=== PATIENT | female | born 1995 | race Caucasian/White ===

== ENCOUNTER 2017-04-14 12:17 | Inpatient (IN) | payer OTHER, MEDICAID ==
[~2017-04-14] VITALS: Ht 157.5 cm; Wt 49.0 kg
[~2017-04-14 12:17] MED LIST: PREN-15 PO
[2017-04-14] MEDS: BETAMET NA PHOS/AC(6 MG/ML) 5ML INJ IM SCH (13:37)
[2017-04-15] MEDS: BETAMET NA PHOS/AC(6 MG/ML) 5ML INJ IM SCH (12:22)
[2017-04-16] MEDS: LACTATED RINGER'S 1,000 ML IV SCH ×2 (06:57→19:30)
[2017-04-16] MEDS ORDERED: MAGNESIUM SULFATE 4 GM/100 ML 100 ML IVPB ONE (07:00)
[2017-04-16] MEDS: MAGNESIUM SULFATE 20 GM/500 ML 500 ML IV SCH ×2 (07:50→17:42)
[2017-04-16] MEDS: PRENATAL VITAMIN PO SCH (09:07)
--- NOTE | 2017-04-17 00:18 | HP ---
Date/Time of Note Date/Time of Note DATE: 04/17/17 TIME: 00:00 OB - History Hx of Present Free Text/Dictation 21 y.o G2P! was admitted for short cervix which was 2.2cm at 30w 2 d sent from [facility] clinic after OB u/s directlyt admitted for further management. x2 betamethasone given and presently receiving magnesium sulfate for neuroprotecxtion will be discontinue after 2days which started actually late presently no uterine contractions on EFM decrease bbv due to Mgso4 Chief Complaint: short cervix Estimated Due Date: Jun 21, 2017 : 2 Para: 1 Spontaneous : 0 Therapeutic : 0 Care: Limited Care Ultrasounds: Normal mid trimester US Medical Complications: None Past Family/Social History * Past Medical, Surgical, Family and Obstetric Histories reviewed from chart. Blood Type: AB+ Rubella: immune RPR/VDRL: Negative GBS Status: Unknown HBsAG: Negative OB Admission Exam Physical Exam HEENT: WNL Heart: Rhythm Normal Lungs: Clear, Equal Abdomen: WNL Extremities: Normal Reflexes: Normal Cervical Dilatation: None Effacement: 0% Membranes: Intact Amniotic Fluid: Unevaluable Heart Rate: 140's Accelerations: Accelerations Present Decelerations: No Decelerations Varibility: Minimum Contractions on Admission: None Last 72 hours Lab Results Magnesium Level Test 04/16/17 11:45 04/16/17 17:48 Magnesium Level 4.5 H 5.0 H OB Assessment/Plan Other Assessment: IUP 30w3d S/p X2bmz magnesium sulfate for 48hrs started late NIL short cervix Other plan: continue bed rest d/c magnesium sulfate 04/18 jael consult JOSE MARCANO MD Apr 17, 2017 00:11
[2017-04-17] MEDS: MAGNESIUM SULFATE 20 GM/500 ML 500 ML IV SCH ×3 (03:11→21:59)
[2017-04-17] MEDS: LACTATED RINGER'S 1,000 ML IV SCH ×2 (07:23→20:56)
[2017-04-17] MEDS: PRENATAL VITAMIN PO SCH (09:24)
[2017-04-18] MEDS: PRENATAL VITAMIN PO SCH (08:52)
[2017-04-18] MEDS: LACTATED RINGER'S 1,000 ML IV SCH (09:35)
--- NOTE | 2017-04-18 22:10 | PN ---
Date/Time of Note Date/Time of Note DATE: 04/18/17 TIME: 22:06 OB Subjective Subjective Subjective no c/o cramping pain OB Objective Objective Objective EFM no uterine activities tracing reactive OB Assessment/Plan Other Assessment: IUP 30w6d short cervix Other plan: continue to be inpatient with BED REST WITH BRP no need to be on tocolytics JOSE MARCANO MD Apr 18, 2017 22:10
[2017-04-19] MEDS: PRENATAL VITAMIN PO SCH (08:30)
[2017-04-19] MEDS: POLYETHYLENE GLYCOL 17 GM PACKET PO SCH (09:00)
[2017-04-20] MEDS: PRENATAL VITAMIN PO SCH (08:55)
--- NOTE | 2017-04-20 14:06 | PN ---
Date/Time of Note Date/Time of Note DATE: 04/20/17 TIME: 14:03 OB Subjective Subjective Subjective no c/o of cramping pain movement good OB Objective Objective Objective EFM reactive no uterine activities OB Assessment/Plan Other Assessment: IUP 30w5d (according to late u/s 31w1d?) short cervix Other plan: bed rest one more week poss discharge JOSE MARCANO MD Apr 20, 2017 14:06
[2017-04-21] MEDS: POLYETHYLENE GLYCOL 17 GM PACKET PO SCH (09:17)
[2017-04-21] MEDS: PRENATAL VITAMIN PO SCH (09:17)
--- NOTE | 2017-04-21 17:57 | PN ---
Date/Time of Note Date/Time of Note DATE: 04/21/17 TIME: 17:50 OB Subjective Subjective Subjective no subjective sx as cramping pain OB Objective Objective Objective EFM few uterine contraction s x4 whole day few variable down to 120 100 from 140' not significant OB Assessment/Plan Other Assessment: IUP 31+ short cervix P continue current management JOSE MARCANO MD Apr 21, 2017 17:57
--- NOTE | 2017-04-22 08:23 | RADRPT ---
PROCEDURE: Limited OB ultrasound CLINICAL INDICATION: Cervical length. TECHNIQUE: Sonographic evaluation to assess the cervical length was performed. COMPARISON: None. FINDINGS: Single live intrauterine is identified. heart rate is 163 beats per minute. Placenta is posterior. Presentation is breech. Cervical length measures approximately 3.6 cm. IMPRESSION: 1. Cervical length measures approximately 3.6 cm, within normal limits. 2. Breech presentation. RPTAT: EE .Jose L Sun MD, MD Date Time Electronically viewed and signed by .Jose L Sun MD, on 04/22/2017 08:27 .C/
[2017-04-22] MEDS: POLYETHYLENE GLYCOL 17 GM PACKET PO SCH (09:00)
[2017-04-22] MEDS: PRENATAL VITAMIN PO SCH (09:15)
--- NOTE | 2017-04-22 10:49 | PN ---
Date/Time of Note Date/Time of Note DATE: 04/22/17 TIME: 10:44 OB Subjective Subjective Subjective no c/o OB Objective Objective Objective cvl 3.6cm today EFM few u.c asymtomatic brief mild variable here and there HEENT: WNL Heart: Rhythm Normal Lungs: Clear, Equal Abdomen: WNL Extremities: Normal Reflexes: Normal OB Assessment/Plan Other Assessment: IUP 31w3d with short cx repeated CVL 3.6 Other plan: discharge home if jael OK JOSE MARCANO MD Apr 22, 2017 10:48
--- NOTE | 2017-04-22 12:13 | PD.PPDC ---
ASSEMBLER FOR PULLER OVER HAND Discharge Instruction Diagnosis Final Diagnosis: IUP 31w3d short cervix resolved? Condition Patient Condition: Stable Diet Diet: Resume Regular Diet Activity/Restrictions Activity: Bedrest May be up to bathroom May Shower Restrictions: No Exercising No Lifting No Driving No Sexual Activity Nothing in the Vagina No [place] No Tampons, douche Follow-up Follow-up with Physician: 2 Provider Information: with perinatalogy in 2weeks JOSE MARCANO MD Apr 22, 2017 12:13
--- NOTE | 2017-04-22 12:22 | DS ---
Date/Time of Note Date/Time of Note DATE: 04/22/17 TIME: 12:17 Discharge Summary Admission/Discharge Info Admit Date/Time Apr 14, 2017 at 12:22 Discharge Date/Time april 22 1215 Discharge Diagnosis IUP 31w3d short cervix, resolved Patient Condition: Stable Consults perinatalogist Procedures x2 bmz magnesoum sulfate for 48hrs bed rest Hx of Present Illness here for short cervix since 04/14 cx 2.2 repeated cvl 3.6cm Hospital Course same as above no uterine activities Home Meds Reported Medications Vit/Fe Fumarate/Fa (Prenafirst Tablet) 1 Tab Tablet, 1 TAB PO 04/03/13 Follow-up Plan 2weeks with perinatalogy and my office Primary Care Provider Care Physician No Primary Time spent on discharge: < 30 minutes JOSE MARCANO MD Apr 22, 2017 12:21
== END 2017-04-22 15:15 | disposition home or self-care (01) | DRG 782 ==
LOC: OBT 12:17 → L-D 12:19 → EDSTATUS 12:21 → OBG 12:22
PROVIDERS: ADMIT Obstetrics & Gynecology; ATTEND Obstetrics & Gynecology
DX: O26.873 Cervical shortening, third trimester (principal); Z3A.30 30 weeks gestation of pregnancy
CPT/HCPCS: 76817; 83735; J0702; J3475; J7120

== ENCOUNTER 2017-06-12 04:30 | Inpatient (IN) | payer MEDICAID, OTHER ==
[~2017-06-12] VITALS: Ht 154.9 cm; Wt 54.7 kg
[2017-06-12 04:46] VITALS: BP 126/71; PULSE 58; RESP 18; Ht 154.9 cm; Wt 54.7 kg
[2017-06-12] MEDS ORDERED: LACTATED RINGER'S 1,000 ML IV SCH (04:47)
[2017-06-12] MEDS ORDERED: LIDOCAINE 1% (MPF) 30 ML INJ INJ PRN (05:00)
[2017-06-12] MEDS ORDERED: OXYTOCIN 30 UNITS/LR 500 ML IV PRN ×2 (05:00→15:00)
[2017-06-12] MEDS ORDERED: CARBOPROST 250 MCG INJ IM PRN ×2 (05:00→15:00)
[2017-06-12] MEDS ORDERED: LACTATED RINGER'S 1,000 ML IV PRN (05:00)
[2017-06-12] MEDS ORDERED: METHYLERGONOVINE 0.2 MG INJ IM PRN ×2 (05:00→15:00)
[2017-06-12] MEDS ORDERED: MISOPROSTOL 200 MCG TAB PR PRN ×2 (05:00→15:00)
[2017-06-12] MEDS ORDERED: IBUPROFEN 600 MG TAB PO PRN (05:00)
[2017-06-12] MEDS ORDERED: OXYTOCIN 30 UNITS/LR 500 ML IV SCH ×2 (05:00)
--- NOTE | 2017-06-12 05:17 | HP ---
Date/Time of Note Date/Time of Note DATE: 06/12/17 TIME: 05:09 OB - History Hx of Present Free Text/Dictation 21 y.o at 38w3d came to triage with c/o U.c since 06/11/17 0700 with intact membrane. VE 5-6/90%/-1 admitted for expectant management. Chief Complaint: u.c's Estimated Due Date: Jun 23, 2017 : 2 Para: 1 Spontaneous : 0 Therapeutic : 0 Care: Good Care Ultrasounds: Normal mid trimester US Obstetrical Complications: None Medical Complications: None Past Family/Social History * Past Medical, Surgical, Family and Obstetric Histories reviewed from chart. Blood Type: AB+ Rubella: immune RPR/VDRL: Negative GBS Status: Negative HBsAG: Negative OB Admission Exam Vital Signs Vital Signs Vital Signs Date Time Temp Pulse Resp B/P Pulse Ox O2 Delivery O2 Flow Rate FiO2 06/12/17 04:46 98.6 58 18 126/71 Room Air Physical Exam HEENT: WNL Heart: Rhythm Normal Lungs: Clear, Equal Abdomen: WNL Extremities: Normal Reflexes: Normal Cervical Dilatation: 5cm Effacement: Other (90%) Station: -1 Membranes: Intact Amniotic Fluid: Unevaluable Heart Rate: 140's Accelerations: Accelerations Present Decelerations: No Decelerations Varibility: Moderate Contractions on Admission: < 5 Minutes Apart Intensity: Moderate OB Assessment/Plan Reason for admission: active labor Other Assessment: IUP 38w3d Plan: Expectant Management JOSE MARCANO MD Jun 12, 2017 05:17
[2017-06-12 06:07] LABS: BASOPHILS % 0.4 % (0.0-2.0); EOSINOPHILS # 0.2 10^3/ul (0.0-0.5); EOSINOPHILS % 1.6 % (0.0-7.0); HEMOGLOBIN 14.8 g/dl (12.0-16.0); LYMPHOCYTES % 21.3 % (18.0-55.0); MEAN CORPUSCULAR HGB CONC 33.6 g/dl (32.0-37.0); MEAN CORPUSCULAR VOLUME 95.2 fl (72.0-104.0); MEAN PLATELET VOLUME 12.8 fl (7.4-10.4); MONOCYTE # 0.8 10^3/ul (0.3-0.9); MONOCYTES % 8.9 % (0.0-13.0); NEUTROPHILS % 67.5 % (30.0-74.0); PLATELET COUNT 176 10^3/UL (140-415); RED BLOOD COUNT 4.62 10^6/ul (4.20-5.40); RED CELL DISTRIBUTION WIDTH 14.1 % (11.5-14.5); WHITE BLOOD COUNT 9.2 10^3/ul (4.8-10.8)
[2017-06-12 06:11] LABS: INR 0.89; PT RATIO 0.9
[2017-06-12 06:12] LABS: PARTIAL THROMBOPLASTIN TIME 28.1 Sec (25.0-35.0)
--- NOTE | 2017-06-12 06:14 | TRIAGE ---
OB Triage Datetime Report Generated by CPN: 06/12/2017 06:14 Datetime: 06/12/2017 05:33 Pain Assessment Pain Scale: 10 Pain Presence: Intermittent Pain Type: Contraction Pain Location: Abdomen; Back Pain Goal: 2 Pain Relief Measures: Comfort Measures Vaginal Exam Dilatation (cms): 7.0 Effacement (%): 90 Station: 0 Datetime: 06/12/2017 05:01 Assessment Type: Admission Assessment Time of Arrival: 06/12/2017 04:25 EGA: 38.3 Arrived By: Wheelchair Vaginal Bleeding: Scant Maternal Assessment Level of Consciousness: Fully Conscious DTR's/Clonus: DTRs 2+; No Clonus Headache: Denies Blurred Vision: No Respiratory Effort: Unlabored; Regular Rhythm; Equal Expansion Breath Sounds, Left: Clear and Equal Breath Sounds, Right: Clear and Equal Nausea/Vomiting: Denies RUQ Epigastric Pain: Denies Lower Extremities Edema: None Degree: None Upper Extremities Edema: None Degree: None Facial Edema: None Fall Risk Assessment History of Falling: (0) No Secondary Diagnosis: (0) No Ambulatory Aid: (0) Bedrest/Nurse Assist IV Therapy: (0) No Gait: (0) Normal/Bedrest/Immobile Mental Status: (0) Oriented to Own Ability Fall Score: 0 Fall Risk Score Definition: No Risk: No action required Pain Assessment Pain Scale: 10 Pain Presence: Intermittent Pain Type: Contraction Pain Location: Abdomen Pain Goal: 2 Membrane Status: Intact Datetime: 06/12/2017 05:00 Time of Arrival: 06/12/2017 05:00 EGA: 38.3 Arrived By: Stretcher Arrived From: Home Chief Complaint: CXS SINCE 06/11/17 AT 0700 Movement: Present Contractions: Irregular Time Contractions Began: 06/11/2017 07:00 Contractions: Q 10-15 Rupture of Membranes: Denies Vaginal Discharge: Denies Recent Sexual Intercouse: Denies Patient Complaints: None Time Provider Notified: 06/12/2017 04:45 Provider Notified: KRYS Initial Plan: EFM, VE, ASSESSMENT, CALL MD FOR ORDERS Datetime: 06/12/2017 04:50 Stage of : OB Triage Temperature Route: Oral Labor Evaluation Frequency: 4-5 Monitor Mode: External Duration (sec)2399: 60-80 Quality: Moderate Pattern: Normal: <= 5 Contractions in 10 Minutes Resting Tone [place]: Relaxed Heart Rate FHR Baseline Rate: 140 Monitor Mode: External US Variability: Moderate 6-25 bpm Accelerations: 15X15 Decelerations: None Category: Category I Pain Assessment Pain Scale: 9 Pain Presence: Intermittent Pain Type: Cramping; Sharp; Contraction Pain Location: Abdomen; Back Pain Goal: 5 Pain Relief Measures: Comfort Measures Datetime: 06/12/2017 04:44 Assessment Type: Triage Maternal Assessment Level of Consciousness: Fully Conscious DTR's/Clonus: DTRs 2+; No Clonus Headache: Denies Blurred Vision: No Respiratory Effort: Unlabored; Regular Rhythm; Equal Expansion Breath Sounds, Left: Clear and Equal Breath Sounds, Right: Clear and Equal Nausea/Vomiting: Denies RUQ Epigastric Pain: Denies Lower Extremities Edema: None Upper Extremities Edema: None Facial Edema: None Fall Risk Assessment History of Falling: (0) No Secondary Diagnosis: (0) No Ambulatory Aid: (0) Bedrest/Nurse Assist IV Therapy: (0) No Gait: (0) Normal/Bedrest/Immobile Mental Status: (0) Oriented to Own Ability Fall Score: 0 Fall Risk Score Definition: No Risk: No action required Datetime: 06/12/2017 04:38 Vaginal Exam Dilatation (cms): 5.5 Effacement (%): 90 Station: -1 Exam By: JOSSE Vaginal Bleeding: Scant Cervix, Consistency: Soft Cervix, Position: Posterior Presentation 'A': Cephalic
[2017-06-12] MEDS: BUTORPHANOL 2 MG INJ IV PRN ×2 (08:01→08:47)
[2017-06-12] MEDS ORDERED: CEFAZOLIN 2 GM/50 ML (PMX) 50 ML IVPB ONE ×2 (08:14→08:30)
[2017-06-12] MEDS ORDERED: MIDAZOLAM 1 MG/ML 2 ML INJ ONE (08:32)
[2017-06-12 09:45] VITALS: BP 116/61; PULSE 60; RESP 18
[2017-06-12 11:15] VITALS: BP 134/87; PULSE 51; RESP 18
--- NOTE | 2017-06-12 14:35 | LDN ---
Date/Time of Note Date/Time of Note DATE: 06/12/17 TIME: 14:29 Delivery Summary noral vaginal deliver Weeks of Gestation 38w3d Episiotomy: No Laceration repair: retained placeta Anesthesia type: None Estimated blood loss: 300 Sponge & Needle done & correct: Yes All needle counts correct: Yes Any foreign bodies felt in the: No Problems: Delivery Information Sex Infant Sex: female Apgars 1 Minute: 9 5 Minute: 9 Suctioning Nose & mouth suctioned at jael: Yes Delee suction performed: No Umbilical Cord Umbilical cord with: 3 Vessels Cord presentations: no nuchal cord Cord Blood was obtained: Yes Mother & Baby Disposition Disposition Mom & Baby to Maternity; Good: Yes Mom transferred to: Other (OR for retained placenta) Baby to NICU: No JOSE MARCANO MD Jun 12, 2017 14:34
[2017-06-12] MEDS ORDERED: LANOLIN 7 GM TUBE TOP PRN (15:00)
[2017-06-12] MEDS ORDERED: ZOLPIDEM 5 MG TAB PO PRN (15:00)
[2017-06-12] MEDS ORDERED: OXYCODONE/ASPIRIN (4.88/325) TAB PO PRN ×2 (15:00)
[2017-06-12 16:00] VITALS: BP 101/57; PULSE 70; RESP 18
[2017-06-12] MEDS: LACTATED RINGER'S 1,000 ML IV SCH ×2 (16:11→23:39)
[2017-06-12] MEDS: BENZOCAINE 20% 56 ML SPRAY TOP PRN (16:49)
[2017-06-12] MEDS: WITCH HAZEL/GLYCERIN PAD PR PRN (16:49)
[2017-06-12] MEDS: IBUPROFEN 600 MG TAB PO SCH ×2 (17:36→23:40)
[2017-06-12 20:00] VITALS: BP 114/59; PULSE 84; RESP 19
[2017-06-12] MEDS: SENNA/DOCUSATE NA (8.6MG/50MG) TAB PO SCH (21:00)
[2017-06-13 00:30] VITALS: BP 100/54; PULSE 72; RESP 19
[2017-06-13 04:32] VITALS: BP 94/56; PULSE 77; RESP 19
[2017-06-13] MEDS: IBUPROFEN 600 MG TAB PO SCH ×3 (05:42→17:45)
[2017-06-13 07:36] LABS: BASOPHILS % 0.3 % (0.0-2.0); EOSINOPHILS # 0.1 10^3/ul (0.0-0.5); EOSINOPHILS % 1.1 % (0.0-7.0); HEMATOCRIT 30.9 % (37.0-47.0); HEMOGLOBIN 10.1 g/dl (12.0-16.0); LYMPHOCYTES # 2.4 10^3/ul (0.8-2.9); LYMPHOCYTES % 20.8 % (18.0-55.0); MEAN CORPUSCULAR HEMOGLOBIN 31.8 pg (29.0-33.0); MEAN CORPUSCULAR HGB CONC 32.7 g/dl (32.0-37.0); MEAN CORPUSCULAR VOLUME 97.2 fl (72.0-104.0); MEAN PLATELET VOLUME 11.5 fl (7.4-10.4); MONOCYTE # 0.7 10^3/ul (0.3-0.9); MONOCYTES % 6.1 % (0.0-13.0); NEUTROPHILS % 71.3 % (30.0-74.0); PLATELET COUNT 148 10^3/UL (140-415); RED BLOOD COUNT 3.18 10^6/ul (4.20-5.40); RED CELL DISTRIBUTION WIDTH 14.6 % (11.5-14.5); WHITE BLOOD COUNT 11.3 10^3/ul (4.8-10.8)
[2017-06-13 08:00] VITALS: BP 99/60; PULSE 82; RESP 18
[2017-06-13] MEDS: SENNA/DOCUSATE NA (8.6MG/50MG) TAB PO SCH ×2 (09:16→21:00)
--- NOTE | 2017-06-13 16:18 | PN ---
Date/Time of Note Date/Time of Note DATE: 06/13/17 TIME: 16:15 OB Subjective Subjective Subjective no c/o OB Objective Objective Objective vss afebrile fundus firm lochia min calf neg for tenderness OB Assessment/Plan Other Assessment: s/p nprmal vaginal delivery Other plan: discharge home in am JOSE MARCANO MD Jun 13, 2017 16:18
[2017-06-13 16:20] VITALS: BP 108/59; PULSE 75; RESP 18
[2017-06-13 20:00] VITALS: BP 104/60; PULSE 71; RESP 20
[2017-06-14] MEDS: IBUPROFEN 600 MG TAB PO SCH ×3 (00:31→11:31)
[2017-06-14 04:00] VITALS: BP 101/58; PULSE 86; RESP 20
[2017-06-14 07:15] VITALS: BP 101/65; PULSE 74; RESP 19
[2017-06-14] MEDS: SENNA/DOCUSATE NA (8.6MG/50MG) TAB PO SCH (08:18)
[2017-06-14] MEDS ORDERED: DIPHTH/TET/ACEL PERTUSS (ADULT) 0.5 ML VIAL IM* ONE (09:00)
[2017-06-14 15:48] VITALS: BP 107/74; PULSE 80; RESP 18
--- NOTE | 2017-06-14 16:18 | PD.PPDC ---
PARKING ENFORCEMENT OFFICER Discharge Instruction Diagnosis Final Diagnosis: s/p normal vaginal delivery s/p removal of piece of placental tissue Condition Patient Condition: Stable Diet Diet: Resume Regular Diet Activity/Restrictions Activity: May Shower Restrictions: No Lifting No Sexual Activity Nothing in the Vagina No [place] No Tampons, douche Follow-up Follow-up with Physician: 6, Week/Weeks Return to clinic for LOSS PREVENTION OFFICER Instructions: Fever greater than 101 Chills Worsening abdominal pain Excessive Vaginal Bleeding More than 2 pads per hour Unable to tolerate diet OB Instructions: Breast Tenderness Depression Blurried Vision Headache JOSE MARCANO MD Jun 14, 2017 16:18
--- NOTE | 2017-06-14 16:23 | DS ---
Date/Time of Note Date/Time of Note DATE: 06/14/17 TIME: 16:22 Obstetrical Discharge Record Final Diagnosis Final Diagnosis: Term delivered Vaginal Delivery Obstetrical Delivery: Spontaneous Complications Augmentation: Yes Rupture of Membranes: No Condition on Discharge Physical Assessment Last Vitals: vss afebrile Voiding: Yes Bowel Movement: Yes Breast: Soft, non-tender Fundus: Firm Calf Tenderness: No Patient Condition: Stable JOSE MARCANO MD Jun 14, 2017 16:23
[2017-06-14] MEDS: WITCH HAZEL/GLYCERIN PAD PR PRN (16:47)
[2017-06-14] MEDS: BENZOCAINE 20% 56 ML SPRAY TOP PRN (16:47)
--- NOTE | 2017-06-14 18:11 | OPR ---
DATE OF OPERATION: 06/12/2017 PREOPERATIVE DIAGNOSIS: Retained placenta. POSTOPERATIVE DIAGNOSIS: Retained placenta. OPERATION PERFORMED: Removal of retained placental tissue. SURGEON: Alta Platt MD ANESTHESIA: Spinal. ANESTHESIOLOGIST: Dr. Tsang ESTIMATED BLOOD LOSS: Negligible, less than 50 mL. DESCRIPTION OF PROCEDURE: Under appropriate induction of spinal anesthesia, the patient was placed on the dorsal lithotomy position. Perineal area and vagina were was prepped and draped in usual aseptic manner. There is a membranous tissue hanging from the cervix and was removed after the normal delivery after 30 minutes. The majority of the placental tissue was entrapped and the manual exploration of the uterus begun. 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 After the removal of the placental tissue, the cavity on the right side was explored multiple times. There was no retained tissue left. Relaxation of the cornua was noted and Hemabate 250 micrograms was ordered. Procedure was completed. All the instrument and sponge counts correct. The patient withstood the procedure well, sent to the recovery room in stable condition. Dictated By: Alta Platt MD /solomon/lino /Document#: [id number]
== END 2017-06-14 17:27 | disposition home or self-care (01) | DRG 767 ==
LOC: OBT 04:30 → L-D 04:30 → OBT 04:45 → L-D 04:45 → PP1 10:45
PROVIDERS: ADMIT Obstetrics & Gynecology; ATTEND Obstetrics & Gynecology
PROC: 10E0XZZ Delivery of Products of Conception, External Approach (ICD-10-PCS; principal; 2017-06-12)
PROC: 10D17ZZ Extraction of Products of Conception, Retained, Via Natural or Artificial Opening (ICD-10-PCS; 2017-06-12)
DX: O34.03 Maternal care for unspecified congenital malformation of uterus, third trimester (principal); O73.1 Retained portions of placenta and membranes, without hemorrhage; Z37.0 Single live birth; Z3A.38 38 weeks gestation of pregnancy; Q51.3 Bicornate uterus
CPT/HCPCS: 85025; 85610; 85730; 86592; 86850; 86900; 86901; 86920; 87340; 90715; G0463; J0595; J0690; J2250; J2590; J7120

== ENCOUNTER 2017-12-28 13:52 | Emergency (ER) | END 2017-12-28 17:22 | disposition home or self-care (01) ==